=== PATIENT | male | born 1970 | race Caucasian/White ===

== ENCOUNTER 2018-03-12 11:15 | Emergency (ER) | payer SELFPAY ==
[2018-03-12 11:30] VITALS: BP 153/96
--- NOTE | 2018-03-12 12:24 | RAD ---
HISTORY: RIGHT ANTERIOR RIB PAIN COMPARISONS: None VIEWS: 9 , Frontal view of the chest with frontal and oblique views of the right hemithorax. FINDINGS: There is no displaced rib fracture or pneumothorax. The visualized lungs are clear. IMPRESSION: NO DISPLACED RIB FRACTURE OR PNEUMOTHORAX
--- NOTE | 2018-03-12 12:52 | UC ---
[facility] Trauma HPI - HPI Summary HPI Summary: Complains of 2-3 days of right rib cage pain. Worse with deep breaths, cough, sneezing. Patient Works as a [employer] and was up in his attic over the weekend. States he was leaning over the joists and had his full body weight on his right rib cage. Complains of some shortness of breath but feels this is mostly due to the discomfort with inspiration. Denies chest pain, nausea, sweats, palpitations. - History Of Current Complaint Chief Complaint: UCChestPain Stated Complaint: RIB PAIN Time Seen by Provider: 03/12/18 11:44 Hx Obtained From: Patient Onset/Duration: Gradual Onset, Lasting Days, Still Present Severity Initially: Moderate Severity Currently: Moderate Pain Intensity: 5 Pain Scale Used: 0-10 Numeric Mechanism Of Injury: Unknown Aggravating Factor(s): Movement, Deep Breathing, Cough Alleviating factor(s): Nothing - Allergies/Home Medications Allergies/Adverse Reactions: Allergies Allergy/AdvReac Type Severity Reaction Status Date / Time amoxicillin Allergy See Comment Verified 03/12/18 11:37 Home Medications: Home Medications NK [No Home Medications Reported] 03/12/18 [History Confirmed 03/12/18] PMH/Surg Hx/FS Hx/Imm Hx Previously Healthy: Yes - Surgical History Surgical History: Yes Surgery Procedure, Year, and Place: shattered femur repair 2009 x2 - Family History Known Family History: Negative: Hypertension - Social History Alcohol Use: Occasionally Substance Use Type: Marijuana Smoking Status (MU): Light Every Day Tobacco Smoker Amount Used/How Often: 1 cig/day Household Exposure Type: Cigarettes Review of Systems Constitutional: Negative Skin: Negative Respiratory: Shortness Of Breath Cardiovascular: Negative Gastrointestinal: Negative Musculoskeletal: Arthralgia - RIFGHT RIB CAGE PAIN All Other Systems Reviewed And Are Negative: Yes Physical Exam Triage Information Reviewed: Yes Appearance: Well-Appearing, No Pain Distress, Well-Nourished Vital Signs: Initial Vital Signs Temp 97.5 F 03/12/18 11:25 Pulse 84 03/12/18 11:25 Resp 18 03/12/18 11:25 BP 153/96 03/12/18 11:25 Pulse Ox 100 03/12/18 11:25 Vital Signs Reviewed: Yes Eyes: Positive: Conjunctiva Clear ENT: Positive: Hearing grossly normal Neck: Positive: Supple Respiratory Exam: Normal Cardiovascular Exam: Normal Abdomen Description: Positive: Soft Musculoskeletal: Positive: No Edema, Other: Neurological: Positive: Alert Psychological: Positive: Age Appropriate Behavior Skin: Negative: rashes Diagnostics - Radiology RIGHT RIB XRAYS Xray Interpretation: No Acute Changes Radiology Interpretation Completed By: Radiologist [place] Trauma Course/Dx - Differential Dx/Diagnosis Provider Diagnoses: RIGHT RIB CONTUSION/COSTOCHONDRITIS Discharge - Sign-Out/Discharge Documenting (check all that apply): Patient Departure All imaging exams completed and their final reports reviewed: Yes - Discharge Plan Condition: Stable Disposition: HOME Patient Education Materials: Costochondritis (ED), Rib Contusion (ED) Referrals: No Primary Care Phys,NOPCP [Primary Care Provider] - Additional Instructions: XRAY TODAY WAS UNREMARKABLE. BE SURE TO TAKE DEEP BREATHS PERIODICALLY TO KEEP YOUR LUNGS INFLATED. GO TO ED WITHOUT FAIL IF YOU DEVELOP WORSENING SHORTNESS OF BREATH, CHEST PAIN, NAUSEA, SWEATS, DIZZINESS OR ANY OTHER CONCERNING SYMPTOMS. RIB INJURIES AND FRACTURES: You have been diagnosed as having either bruised or broken ribs. These two injuries are treated in the same way. It will usually take four to six weeks for these injured ribs to heal. Sometimes, rib belts or anesthetic injections of the chest wall help reduce the pain. If you are using a rib belt, you should cough or take a deep breath at least every hour or two to prevent lung complications. You should not engage in any strenuous physical activity until released by your physician. The usual rule is "if it hurts, don't do it." Rib fractures can lead to serious lung complications including lung collapse, hemorrhage, and pneumonia. You should go to the ED if any of the following occur: (1) Fever or chills. (2) Persistent cough, coughing up blood, or shortness of breath. (3) Increasing pain. (4) Weakness, lightheadedness, or fainting. CALL THE NUMBER BELOW FOR ASSISTANCE IN ESTABLISHING WITH A PCP An additional resource available to assist in finding the appropriate physician for your health care needs is [facility] ([facility]). You may contact them by calling [phone]. - Billing Disposition and Condition Condition: STABLE Disposition: Home
== END 2018-03-12 12:58 | disposition home or self-care (01) ==
LOC: UCEAST 11:15
DX: S20.211A Contusion of right front wall of thorax, initial encounter (principal); X58.XXXA Exposure to other specified factors, initial encounter; Y92.008 Other place in unspecified non-institutional (private) residence as the place of occurrence of the external cause; M94.0 Chondrocostal junction syndrome [Tietze]; R06.02 Shortness of breath; Z88.0 Allergy status to penicillin; F17.210 Nicotine dependence, cigarettes, uncomplicated
CPT/HCPCS: 36415; 86703; 99201; G0463